=== PATIENT | female | born 1975 | race Caucasian/White ===

== ENCOUNTER 2018-07-05 21:06 | Emergency (ER) | payer SELFPAY ==
[~2018-07-05] VITALS: Ht 152.4 cm; Wt 74.8 kg
--- NOTE | 2018-07-05 21:08 | NUR ---
PT BIB FAMILY TO ER BY FAMILY, FOUND OUT PT MOTHER HAD AT 1999, BECAME DISTROUT, AND BECAME LESS AND LESS RESPONSIVE. UNTIL PT COLLAPED ON FLOOR OF ER WAITING AREA.
--- NOTE | 2018-07-05 21:09 | NUR ---
ER STAFF IMMEDIATELY PLACED HER TO ER BED 2 VIA WC, NO PHYSICAL OUTTER S/S OF ACUTE INJURIES, PT AWOKE AND BECAME TEMPORARY RESPONSIVE WITH STERNAL RUB, BEDSIDE TO INITIAL ASSESS. V/S STABLE, HOWEVER, PT BECAME UNRESPONSIVE YET AGAIN. EKG, IV LINE, BLOOD DRAW SETTING UP TO BE STARTED. GOWNED AND PLACED ON GURNEY WITH RAILS UP
--- NOTE | 2018-07-05 21:10 | NUR ---
Fingerstick Blood Glucose: 107
--- NOTE | 2018-07-05 21:11 | NUR ---
ER Dr. Renee at bedside examining patient.
--- NOTE | 2018-07-05 21:15 | NUR ---
Placed in room 2 . Placed on hospital monitor, blood pressure machine and pulse oximeter. To gown for exam. Side rails up.
[2018-07-05 21:20] VITALS: BP_SYST 135
--- NOTE | 2018-07-05 21:24 | NUR ---
PT MOVED FROM BED 2 TO ER BED 6, WHERE FAMILY CAN BE TOGATHER IN CALM ENVIRONMENT. PER NURSING SUP
--- NOTE | 2018-07-05 21:33 | NUR ---
PT CURRENTLY SOBBING UNCONSOLABLE WITH FAMILY AT BEDSIDE. HOWEVER, V/S REMAINS STABLE
[2018-07-05 22:36] VITALS: BP_SYST 133
--- NOTE | 2018-07-05 22:36 | NUR ---
Patient given written and verbal discharge instructions and verbalizes understanding. ER MD discussed with patient the results and treatment provided. Patient in stable condition. ID arm band removed. IV catheter removed intact and dressing applied, no active bleeding. No Rx given. Patient educated on pain management and to follow up with PMD. Pain Scale 0. Opportunity for questions provided and answered. Medication side effect fact sheet provided.
== END 2018-07-05 22:36 | disposition home or self-care (01) ==
LOC: SED 21:06
DX: F43.22 Adjustment disorder with anxiety (principal); R03.0 Elevated blood-pressure reading, without diagnosis of hypertension
CPT/HCPCS: 99282